=== PATIENT | male | born 1950 | race Hispanic/Latino ===

== ENCOUNTER 2017-07-13 09:09 | Day surgery (SDC) | payer MEDICARE, OTHER ==
[2017-07-10 11:22] VITALS: BMI 29.8
[2017-07-13 09:30] LABS: BASO # 0.02 K/mm3 (0.0-2.0); BASO % 0.3 % (0.0-3.0); EOS # 0.4 (0.0-0.7); GRAN # 3.8 (1.4-6.5); GRAN % 58.6 % (50.0-68.0); HEMOGLOBIN 15.5 g/dL (14.0-18.0); LYMPH # 1.5 (1.2-3.4); LYMPH % 22.4 % (22.0-35.0); MEAN CELL VOLUME 93.3 fl (80.0-105.0); MEAN CORPUSCULAR HEMOGLOBIN 32.5 pg (25.0-35.0); MEAN CORPUSCULAR HGB CONC 34.8 g/dl (31.0-37.0); MEAN PLATELET VOLUME 9.6 fl (7.0-11.0); MONO # 0.8 (0.1-0.6); MONO % 12.7 % (1.0-6.0); RBC 4.77 10^6/uL (3.5-6.1); RED CELL DISTRIBUTION WIDTH 12.2 % (11.5-14.5); WHITE BLOOD COUNT 6.5 10^3/ul (4.5-11.0)
[2017-07-13 09:40] LABS: BLOOD UREA NITROGEN 10 mg/dL (7-21); CALCIUM 9.9 mg/dL (8.4-10.5); GFR AFRICAN-AMERICAN > 60; GFR NON-AFRICAN AMERICAN > 60
[2017-07-13 09:41] LABS: INR 0.94 (0.93-1.08); PARTIAL THROMBOPLASTIN TIME 34.3 Seconds (25.1-36.5); PROTHROMBIN TIME 10.8 SECONDS (9.4-12.5)
[2017-07-13] MEDS ORDERED: Midazolam 2 MG/2 ML VIAL ONE (10:10)
[2017-07-13] MEDS ORDERED: Lidocaine 1% Inj (20ml) ONE (10:17)
[2017-07-13] MEDS ORDERED: Oxycodone/Acetaminophen 5/325 mg Tab PO PRN (10:58)
[2017-07-13] MEDS ORDERED: Sodium Chloride 0.45% 1,000 ML IV SCH (11:00)
--- NOTE | 2017-07-13 13:27 | RAD ---
HISTORY: lt lung bx COMPARISON: CT biopsy films FINDINGS: LUNGS: There is a small left-sided pneumothorax with the edge of the lung 10 mm from the chest wall PLEURA: As above CARDIOVASCULAR: Normal. OSSEOUS STRUCTURES: No significant abnormalities. VISUALIZED UPPER ABDOMEN: Normal. OTHER FINDINGS: None. IMPRESSION: Small left-sided pneumothorax post biopsy
--- NOTE | 2017-07-13 15:40 | CT ---
PROCEDURE: CT guided left lower lobe lung biopsy. HISTORY: Spiculated 2 cm noncalcified left lower lobe lung mass. Evaluate for malignancy. PHYSICIAN(S): Dale Flowers MD. TECHNIQUE: The relative risks and indications of the procedure were explained to the patient and consent obtained. The patient was placed in a right decubitus position on the CT scanner and preliminary images through the mid lungs obtained. Conscious sedation and monitoring were provided throughout the procedure by a nurse. There is a 2 cm spiculated mass in the anterior aspect the left lower lobe. A left lateral approach was selected and the area prepped and draped in the usual sterile fashion. 1% Xylocaine was used to anesthetize the skin and soft tissues. A 19 gauge guiding needle was advanced into the 2 cm left lower lobe lung mass. Its position was confirmed with CT. Using coaxial technique, multiple core biopsies were obtained. The postprocedure images show demonstrated a small pneumothorax and no significant hemorrhage. The patient was asymptomatic and vital signs were stable. A follow-up chest x-ray has been ordered IMPRESSION: 1. CT-guided left lower lobe lung biopsy as described above.
[2017-07-13 16:04] VITALS: BP 153/88; PULSE 77; RESP 18; TEMP 98.3; O2SAT 98
== END 2017-07-13 16:30 | disposition home or self-care (01) ==
LOC: SDS 09:09
PROVIDERS: ATTEND Radiology Vascular & Interventional Radiology
DX: C34.32 Malignant neoplasm of lower lobe, left bronchus or lung (principal); F17.200 Nicotine dependence, unspecified, uncomplicated; I10 Essential (primary) hypertension; K21.9 Gastro-esophageal reflux disease without esophagitis; J95.811 Postprocedural pneumothorax; Y84.8 Other medical procedures as the cause of abnormal reaction of the patient, or of later complication, without mention of misadventure at the time of the procedure
CPT/HCPCS: 32405; 36415; 71045; 77012; 80048; 85025; 85610; 85730; 88305; J2250; J2405; J3010; J7030